=== PATIENT | female | born 1965 | race Asian ===

== ENCOUNTER 2021-01-26 21:55 | Emergency (ER) | payer BC ==
[~2021-01-26] VITALS: Ht 162.6 cm; Wt 61.3 kg
--- NOTE | 2021-01-26 22:18 | NUR ---
PT'S [place] [employer] LANGUAGE IS MANDARIN, SON HELPING HER IN TRIAGE. PT THINKS THE ADDRESS THE NEIGHBORS' DOGS CAME FROM [address], [place] [id number]. ANIMAL CONTROL HAS NOT YET BEEN NOTIFIED
[2021-01-26] MEDS ORDERED: acetaminophen 325mg tablet PO ONE (22:35)
[2021-01-26] MEDS ORDERED: TETanus/Pertussis (Acell)/Diphther VAC/PF (Tdap-Adult) 0.5ml syringe IMVAC ONE (22:35)
[2021-01-26] MEDS ORDERED: bacitracin 15gm ointment TP ONE (22:35)
[2021-01-26] MEDS ORDERED: AMOX-580 PO (22:50)
--- NOTE | 2021-01-26 22:56 | NUR ---
MESSAGE WAS LEFT WITH [facility] ANIMAL CONTROL ANSWERING SERVICE REGARDING DOG BITE, GIVEN PT'S INFORMATION AND PT'S NEIGHBOR'S ADDRESS. ANSWERING SERVICE TO NOTIFY TRAVELING ENGINEER
[2021-01-26 23:04] VITALS: BP 152/79
== END 2021-01-26 23:05 | disposition home or self-care (01) ==
LOC: ER 21:56
DX: S51.812A Laceration without foreign body of left forearm, initial encounter (principal); S81.851A Open bite, right lower leg, initial encounter; Z20.3 Contact with and (suspected) exposure to rabies; Z79.2 Long term (current) use of antibiotics; W54.0XXA Bitten by dog, initial encounter; Y93.89 Activity, other specified; Y92.89 Other specified places as the place of occurrence of the external cause; Y99.8 Other external cause status
CPT/HCPCS: 90471; 90715; 99283